=== PATIENT | female | born 1980 | race Caucasian/White ===

== ENCOUNTER 2021-10-23 05:36 | Emergency (ER) | payer MEDICAID ==
[~2021-10-23] VITALS: Ht 167.6 cm; Wt 105.0 kg
[2021-10-23] MEDS ORDERED: IBUPROFEN 600MG TABLET PO ONE (06:00)
[2021-10-23 08:05] LABS: CLARITY URINE CLEAR (CLEAR); COLOR URINE YELLOW (YELLOW); KETONES URINE NEGATIVE (NEGATIVE); LEUKOCYTE ESTERASE URINE NEGATIVE (NEGATIVE); NITRITE URINE NEGATIVE (NEGATIVE); OCCULT BLOOD URINE 2+ (NEGATIVE); PROTEIN URINE 2+ (NEGATIVE); SPECIFIC GRAVITY URINE 1.014 (1.005-1.030); UROBILINOGEN URINE 0.2 E.U./dL (0.2-1.0)
[2021-10-23] MEDS ORDERED: METH-653 MT (12:56)
[2021-10-23] MEDS ORDERED: LIDO1ADH71 * (12:56)
[2021-10-23 13:10] VITALS: BP 147/96
== END 2021-10-23 13:17 | disposition home or self-care (01) ==
LOC: ER 05:36
DX: M54.50 Low back pain, unspecified (principal); I10 Essential (primary) hypertension; J45.909 Unspecified asthma, uncomplicated; E28.2 Polycystic ovarian syndrome; Z90.49 Acquired absence of other specified parts of digestive tract; V43.52XA Car driver injured in collision with other type car in traffic accident, initial encounter; Y93.89 Activity, other specified; Y92.488 Other paved roadways as the place of occurrence of the external cause
CPT/HCPCS: 71045; 72100; 74176; 81003; 93005; 99285